=== PATIENT | female | born 2000 | race Two or more races ===

== ENCOUNTER 2024-01-05 15:31 | Emergency (ER) | payer OTHER, SELFPAY ==
[2024-01-05 15:33] VITALS: BP 92/67
[2024-01-05 16:47] VITALS: BMI 25.7
--- NOTE | 2024-01-05 17:35 | ED.GENMED ---
History of Present Illness
General
Chief Complaint: Skin Problem
Source: patient
Exam Limitations: none
Time Seen by Provider: 01/05/24 17:27
Nursing documentation reviewed up to this point in time: agreed with
Travel History
Have you had any contact with someone who has COVID-19?: No
Do you have any symptoms of coronavirus? Fever > 100 degrees, chills, cough, shortness of breath, sore throat, loss of taste or smell, muscle aches, or headache?: No
History of Present Illness
History of Present Illness:
Patient to ED with cmplaint of small itchy lump on right calf. Symptoms started a few months ago She was placed on an antibiotic without improvement. Brought to ED by father for eval.
Past History
Past History
ED Past Medical History: None
ED Past Surgical History: None
Social History
Tobacco: Non-smoker
Alcohol: None
Drug: None
Review of Systems
Review of Systems
Allergies reviewed?: Yes
All Other Systems: ROS reviewed and negative except as documented in HPI and ROS
Constitutional: Reports no symptoms
EENT: Reports no symptoms
Respiratory: Reports no symptoms
Cardiac: Reports no symptoms
ABD/GI: Reports no symptoms
Musculoskeletal: Reports no symptoms
Skin: Reports other (small lump right calf, pruritic)
Neurological: Reports no symptoms
Psychiatric: Reports no symptoms
Phy Exam
General Physical Exam
General Presentation: well appearing and no apparent distress
General age: appears stated age
General Skin: warm and dry
General Habitus: normal
Musculoskeletal Exam
Musculoskeletal Exam: full ROM, neck pain and neuro vasc intact
Skin Exam
Skin Exam: normal color, warm/dry and other (1cm round nonpainful nodule right calf. No redness, no discharge. )
Psychiatric Exam
Psychiatric Exam: normal mood/affect
Course
Vital Signs
Initial and Last Documented VS:
Initial Vital Signs
Temp Pulse Resp BP Pulse Ox
97.9 F 60 16 100
01/05/24 15:33 01/05/24 15:33 01/05/24 15:33 01/05/24 15:33 01/05/24 15:33
Last Documented Vital Signs
Temp Pulse Resp BP Pulse Ox
97.9 F 60 16 100
01/05/24 15:33 01/05/24 15:33 01/05/24 15:33 01/05/24 15:33 01/05/24 15:33
*Critical Care Note
Total Time (30-74mins, 75-104mins- exclusive of procedures): Not Applicable
Update Note
Update Note:
Nonpainful nodule to right calf. Developed several months ago. NO s/s infection. Recommend f/u with derm for further evaluation and removal. Patient and father are agreeable to plan.
ED Attending Note
-
Portions of this chart may have been created with voice recognition software.� Occasional wrong word or��sound alike� substitutions may have occurred due to the inherent limitations of voice recognition software.
Discharge Plan
Departure
Patient Disposition: Home (Routine Discharge)
Date of Disposition: 01/05/24
Time of Disposition: 17:34
Patient with high blood pressure during this ER visit?: No
Condition: Good
Covid-19: Not Applicable
Discharge Problem:
Dermoid cyst
Instructions: Epidermal Cyst (DC)
Prescriptions:
No Action
epinephrine [EpiPen] 0.3 MG/0.3/SYRINGE auto-injector
0.3 mg IM ONCE Qty: 2 3RF
Rx Instructions:
Use for severe allergic reaction
Referrals:
Afsaneh Campbell MD [Family Provider] -
Analy Fitzgerald MD [Consulting Staff] - Next open appointment
Interventions
Interventions:
*Risk Screen - Suicide Last Done: 01/05/24 16:38
*General Assessment Last Done: 01/05/24 16:33
*Neglect/Abuse Screening Last Done: 01/05/24 16:38
ED- Fall Risk Assessment Last Done: 01/05/24 16:33
*ED COVID-19 Vaccine History Last Done: 01/05/24 16:33
*Nursing Disposition Last Done: 01/05/24 17:45
ED-Skin Assessment Last Done: 01/05/24 16:33
Discharge Date and Time
Discharge Date/Time: 01/05/24 17:45
--- NOTE | 2024-01-05 17:44 | EDRN ---
REviewed discharge instructions with patient and her father. Verbalized understanding. Ambulated with steady gait to the [facility].
== END 2024-01-05 17:45 | disposition home or self-care (01) ==
LOC: EMR 15:31
PROVIDERS: EMERGENCY PHYSICIAN Emergency Medicine; FAMILY PHYSICIAN Family Medicine
DX: D23.71 Other benign neoplasm of skin of right lower limb, including hip (principal); L29.9 Pruritus, unspecified; Z88.3 Allergy status to other anti-infective agents; Z91.018 Allergy to other foods
CPT/HCPCS: 99282